=== PATIENT | female | born 1985 | race Caucasian/White ===

== ENCOUNTER 2020-11-19 11:41 | Emergency (ER) | payer SELFPAY ==
[2020-11-19 11:52] VITALS: BP 123/78; PULSE 74; TEMP 99; BMI 27.3
[2020-11-19 13:56] LABS: BASO % 0.6 % (0-2.0); EOS % 0.7 % (0-4.5); HEMATOCRIT 35.6 % (32.4-45.2); HEMOGLOBIN 12.1 GM/dL (10.7-15.3); LYMPH % 21.9 % (8-40); MEAN CELL VOLUME 82.5 fl (80-96); MONO % 6.9 % (3.8-10.2); NEUT % 69.9 % (42.8-82.8); PLATELET COUNT 359 K/MM3 (134-434); RBC 4.32 M/mm3 (3.60-5.2); RDW 15.5 % (11.6-15.6); WHITE BLOOD COUNT 9.1 K/mm3 (4.0-10.0)
[2020-11-19 14:18] LABS: PH,URINE 5.5 (5.0-8.0); URINE APPEARANCE CLEAR; URINE BILIRUBIN NEGATIVE (NEGATIVE); URINE COLOR YELLOW; URINE GLUCOSE (UA) NEGATIVE (NEGATIVE); URINE KETONE 4+ (NEGATIVE); URINE LEUK ESTERASE NEGATIVE (NEGATIVE); URINE NITRITE NEGATIVE (NEGATIVE); URINE PROTEIN NEGATIVE (NEGATIVE); URINE UROBILINOGEN 0.2 mg/dL (0.2-1.0)
== END 2020-11-19 15:23 | disposition home or self-care (01) ==
LOC: JERFT 11:41 → JER 11:41 → JERFT 15:23
DX: O26.851 Spotting complicating pregnancy, first trimester (principal); Z3A.12 12 weeks gestation of pregnancy
CPT/HCPCS: 36415; 76815-TC; 81003; 84702; 85025; 86850; 86900; 86901; 87086; 99285-25

== ENCOUNTER 2021-02-06 18:13 | Emergency (ER) | payer OTHER ==
[2021-02-06 18:22] VITALS: BMI 30.2
[2021-02-06 18:54] VITALS: BP 118/72; PULSE 88; TEMP 98.1
[2021-02-06 20:22] LABS: EPI CELLS 31 /uL (0-25.1); HYALINE CASTS 1 /uL (0-3.1); URINE APPEARANCE CLEAR; URINE BACTERIA 630 /uL (0-1359); URINE BILIRUBIN NEGATIVE (NEGATIVE); URINE COLOR YELLOW; URINE GLUCOSE (UA) NEGATIVE (NEGATIVE); URINE KETONE NEGATIVE (NEGATIVE); URINE LEUK ESTERASE TRACE (NEGATIVE); URINE NITRITE NEGATIVE (NEGATIVE); URINE PROTEIN NEGATIVE (NEGATIVE); URINE RBC 1 /uL (0-23.9); URINE UROBILINOGEN 0.2 mg/dL (0.2-1.0); URINE WBC 24 /uL (0-25.8)
== END 2021-02-06 20:50 | disposition home or self-care (01) ==
LOC: JER 18:13
DX: R10.30 Lower abdominal pain, unspecified (principal); Z3A.22 22 weeks gestation of pregnancy
CPT/HCPCS: 81003; 87077; 87086; 99283-25